=== PATIENT | female | born 1970 | race Two or more races ===

== ENCOUNTER 2024-10-23 14:28 | Emergency (ER) | payer OTHER, SELFPAY ==
[2024-10-23 14:48] VITALS: BP 165/68; PULSE 89; RESP 17; TEMP 37.4; O2SAT 96; BMI 33.4
--- NOTE | 2024-10-23 14:55 | XR_ITS ---
Examination: CT brain head without contrast. 2-D sagittal coronal reconstructions Date and time of exam:April 25, 2024 1513 hours INDICATIONS: Syncopal episode today CTDI: vol (mGy):49.9 DLP: (mGycm):973 Technique: Multiple CT axial sections of the brain have been obtained, 5 mm slice thickness. Contrast has not been administered. 2-D sagittal, coronal reconstructions have been obtained Low dose protocols were performed. One or more of the following dose reduction techniques were used; automated exposure control, adjustment of the mA and/or KV according to patient size, use of iterative reconstruction technique. Findings: No significant ventricular enlargement. Subtle 12 mm focus of low density in the right parietal lobe, axial image 18, which may be old Intra-axial or extra-axial hemorrhage density is not seen. No mass effect or midline shift Basal cisterns are not remarkable. Fourth ventricle is midline. Cranial vault intact. Impression: Negative for acute hemorrhage, mass effect or midline shift Subtle 12 mm low-density area in the right parietal lobe, axial image 18, which may be old, clinical correlation advised, consider follow-up brain MRI as clinically warranted
--- NOTE | 2024-10-23 14:56 | EKG_ITS ---
[facility] Test Date: 2024-10-23 Pat Name: JARAD COATES Department: Room: - Gender: Female [employer]: : 1970 Requested By: Erasmo Benitez Order Number: [id number] Reading MD: Erasmo Benitez Measurements Intervals [place] Rate: 80 P: 12 MN: 132 QRS: -9 QRSD: 95 T: -5 QT: 385 QTc: 447 Interpretive Statements SINUS RHYTHM LOW QRS VOLTAGE IN PRECORDIAL LEADS [QRS DEFLECTION < 1.0 mV IN CHEST LEADS] INCOMPLETE RIGHT BUNDLE BRANCH BLOCK [90+ ms QRS DURATION, TERMINAL R IN V1/V2, 40+ ms S IN I/aVL/V4/V5/V6] No previous ECG available for comparison /store/S0/[id number].pdf
--- NOTE | 2024-10-23 14:56 | PD.EDRME ---
Rapid Medical Screening Exam E Arrival date/time: 10/23/24 14:28 54-year-old female with no known medical history presents to the emergency room after having a syncopal episode that occurred at work. 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 A comprehensive ED assessment and evaluation of the patient, analysis of all test results, and completion of the medical decision making process will be conducted by additional ED providers. Chief Complaint: Nausea/Vomiting/Diarrhea Time Seen by Provider: 10/23/24 14:42 Vital signs: Vital Signs Temperature 99.3 F 10/23/24 14:48 Pulse Rate 89 10/23/24 14:48 Respiratory Rate 17 10/23/24 14:48 Blood Pressure 165/68 H 10/23/24 14:48 Pulse Oximetry (%) 96 10/23/24 14:48 Oxygen Delivery Method Room Air 10/23/24 14:48 Vital signs reviewed by provider: Yes
[2024-10-23 15:34] LABS: Basophils # (Auto) 0.0 Thou/mm3 (0.0-0.2); Basophils % (Auto) 0 % (0-2.5); Eosinophils # (Auto) 0.0 Thou/mm3 (0.0-0.5); Eosinophils % (Auto) 0 % (0-10); Hematocrit 41.2 % (36.0-46.0); Hemoglobin 14.2 g/dL (12.0-16.0); Immature Granulocytes Auto 0.03 Thou/mm3 (0.00-0.00); Lymphocytes # (Auto) 2.9 Thou/mm3 (1.0-4.8); Lymphocytes % (Auto) 28 % (10-50); Mean Corpuscular HGB Conc 34.5 g/dl (31.0-37.0); Mean Corpuscular Hemoglobin 27.6 pg (25.0-35.0); Mean Corpuscular Volume 80 fL (80-100); Monocytes # (Auto) 0.9 Thou/mm3 (0.0-0.8); Monocytes % (Auto) 9 % (0-12); Neutrophils # (Auto) 6.4 Thou/mm3 (1.8-7.7); Neutrophils % (Auto) 63 % (37-80); Nucleated Red Blood Cell # 0.00 Thou/mm3 (0.00-0.00); Nucleated Red Blood Cell % 0 /100 WBC (0); Platelet Count 365 Thou/mm3 (140-440); RDW Standard Deviation 39.3 fL (36.4-46.3); Red Blood Count 5.14 Miln/mm3 (4.00-5.20); White Blood Count 10.2 Thou/mm3 (3.6-11.0)
[2024-10-23 15:48] LABS: B-Type Natriuretic Peptide 37 pg/mL (0-100)
[2024-10-23 15:51] LABS: Alanine Aminotransferase 39 U/L (10-49); Albumin, Serum 4.6 gm/dL (3.5-5.0); Albumin/Globulin Ratio 1.6 (1.2-2.2); Alkaline Phosphatase 72 U/L (46-116); Anion Gap 12 (7-16); Aspartate Amino Transferase 40 U/L (0-34); BUN/Creatinine Ratio 9 Ratio (12-20); Bilirubin,Total 0.4 mg/dL (0.3-1.2); Blood Urea Nitrogen 8 mg/dL (9-23); Calcium 9.4 mg/dL (8.3-10.6); Calcium (Corrected) 9.4 mg/dL (8.5-10.1); Carbon Dioxide 25.1 mMol/L (20.0-31.0); Chloride 108 mMol/L (98-107); Creatine Kinase 288 U/L (34-171); Creatinine (Component) 0.9 mg/dL (0.6-1.3); Estimated Creatinine Clearance 80.6 mL/min (>60); Globulin 2.8 gm/dL (2.3-3.5); Glucose 79 mg/dL (74-106); Osmolality,Calculated 286 (275-295); Potassium 3.8 mMol/L (3.4-5.1); Sodium 145 mMol/L (136-145); Total Protein 7.4 gm/dL (5.7-8.2); Troponin I < 0.020 ng/mL (0.0-0.045); eGFR > 60 See Note
[2024-10-23 16:06] LABS: Collection Type, Urine Clean Catch
[2024-10-23 16:15] LABS: Bacteria,Urine Rare; Bilirubin,Urine Negative (Negative); Blood,Urine Negative (Negative); Clarity,Urine Clear (Clear/Hazy); Color,Urine Yellow (Lt Yel-Yel); Glucose, Urine Negative (Negative); Ketones,Urine Negative (Negative); Leukocyte Esterase,Urine Negative (Negative); Nitrite,Urine Negative (Negative); PH,Urine 5.5 (5.0-7.0); Protein,Urine Trace (Neg - Trace); RBC,Urine 3 /hpf (0-3); Specific Gravity,Urine 1.028 (1.001-1.035); Squamous Epithelial Cell,Urine 1 /hpf (0-5); Urobilinogen,Urine Negative mg/dL (0.0-1.0); WBC,Urine 1 /hpf (0-5)
[2024-10-23] MEDS: SODIUM CHLORIDE 0.9% 1000 ML 1,000 ML 999 ML IV (17:11)
--- NOTE | 2024-10-23 17:20 | EDNOTE_ITS ---
Nausea/Vomit./Diarrhea-RME/HPI General Chief complaint: Nausea/Vomiting/Diarrhea Stated complaint: Heat exhaustion, vomiting Time Seen by Provider: 10/23/24 14:42 Arrival date/time: 10/23/24 14:28 RME / HPI RME / HPI Narrative: 54-year-old female with no known medical history presents to the emergency room after having a syncopal episode that occurred at work. 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 Prior to the incident patient was vomiting also nonbloody. Patient denies focal neurologic deficit. No diarrhea. No fever noted. Related Data Allergies Allergy/AdvReac Type Severity Reaction Status Date / Time No Known Drug Allergies Allergy Verified 10/23/24 14:35 Review of Systems Review of Systems Narrative Review of Systems: Review of system reviewed and within normal limits except mentioned in HPI ED Exam Narrative Physical exam: VITAL SIGNS: Reviewed. GENERAL APPEARANCE: Alert and interactive, follows commands, no acute distress, HEAD AND FACE: Non-traumatic. ENT: PERRL, pink conjunctivitis, eyelid no trauma, Mucous membrane moist. NECK: Supple, nontender, no nuchal rigidity. CHEST: No tenderness, no crepitus, no paradoxical movement, no retractions. LUNGS: Clear, well ventilated, symmetric, no rales, no wheezing, no ronchi, no stridor, good breath sounds bilaterally. HEART: Regular rate, regular rhythm, no murmur, no gallops. ABDOMEN: Soft, positive bowel sounds, nondistended, no guarding, nontender, no rebound, no masses, RECTAL: Deferred. GENITAL: Deferred. NEUROLOGICAL: Gross motor function intact sensory function intact, Appropriate for age. MUSCULOSKELETAL: low back nontender, full range of motion. EXTREMITIES: Nontender, full range of motion. SKIN: Color pink, dry, no rash, no lacerations, no abrasions, no contusions. LYMPHATICS: Deferred. Course Quality Measures none Orders Category Date Time Status EKG (ED ONLY) *Do not use* NOW Care 10/23/24 14:56 Completed IV [Insert IV] NOW Care 10/23/24 17:[address] head/brain wo con Stat Exams 10/23/24 14:55 Completed EKG (ED Only) Stat Exams 10/23/24 14:56 Draft B-Type Natriuretic Peptide Stat Lab 10/23/24 15:27 Completed CBC Stat Lab 10/23/24 15:27 Completed CK [Creatine Kinase] Stat Lab 10/23/24 15:27 Completed Comprehensive Metabolic Panel Stat Lab 10/23/24 15:27 Completed Troponin I Stat Lab 10/23/24 15:27 Completed Urinalysis Stat Lab 10/23/24 15:48 Completed Acetaminophen Tab [Tylenol ES Tab] Med 10/23/24 17:20 Discontinued 1,000 mg PO X1 ONE Sodium Chloride 0.9% 1000 ml [Ns] 1,000 ml Med 10/23/24 17:02 Active IV 999 mls/hr Vital Signs Vital signs: Vital Signs Temperature 99.3 F 10/23/24 14:48 Pulse Rate 89 10/23/24 14:48 Respiratory Rate 17 10/23/24 14:48 Blood Pressure 165/68 H 10/23/24 14:48 Pulse Oximetry (%) 96 10/23/24 14:48 Oxygen Delivery Method Room Air 10/23/24 14:48 Nausea/Vomiting/Diarrhea MDM Narrative MDM Narrative:: 54-year-old female patient with no medical history presents to the emergency room after having a syncopal episode that occurred at work. 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 Prior to the incident patient was vomiting also nonbloody. Patient denies focal neurologic deficit. No diarrhea. No fever noted. Patient's workup today came back with no leukocytosis, CMP unremarkable except for chloride of 108 total CK of 288 urinalysis noting UTI EKG showed normal sinus rhythm, ventricular rate of 80 bpm, no ST segment elevation or depression noted. CT head showed Negative for acute hemorrhage, mass effect or midline shift Subtle 12 mm low-density area in the right parietal lobe, axial image 18, which may be old, clinical correlation advised, consider follow-up brain MRI as clinically warranted Results discussed with the patient and advised her to follow-up closely with her PCP for possible MRI of the brain. At this time patient is not showing any sign of acute changes in the CT scan. Patient received IV fluids, Tylenol, with complete resolution of symptoms. Patient data External records reviewed:: None Clinical information provided by:: patient Social determinants that could affect healthcare access:: none Patient has the following chronic illnesses:: Stable How is presenting disease/condition affected by chronic disease/condition?: exac erbated by Evaluation data The following diagnostics were reviewed and interpreted by me:: lab results, radiology exam(s) and EKG tracing(s) Lab and/or radiology exams considered but not ordered:: None Interpretation Summary: See results MDM Medications / Prescriptions Medications / Prescriptions considered but not ordered:: None Medication administrations:: Medication Administration History Sodium Chloride (Ns) 1,000 mls @ 999 mls/hr IV .Q1H1M ONE Stop: 10/23/24 18:02 Last Admin: 10/23/24 17:11 Dose: 999 mls/hr Documented By: AURELIANO Discontinued Medications Acetaminophen (Acetaminophen 500 Mg Tablet) 1,000 mg PO X1 ONE Stop: 10/23/24 17:21 Last Admin: 10/23/24 17:30 Dose: 1,000 mg Documented By: AURELIANO Tylenol, IV fluids Consultations Consultation(s) initiated? (list below): No Diagnosis Nausea Differential Diagnosis: gastroenteritis and dehydration Most likely diagnosis given after review of the tests above:: Heat exhaustion Admission Indicated Admission indicated?: not indicated Admission Request Was there a request for admission?: No Disposition Plan Disposition Plan: Discharge Discharge Attestation Discharge Attestation: The patient and all family members were given an opportunity to ask questions and understood the discharge instructions. Discharge instructions specifically effects, indications for sooner follow up or return to the emergency department, and the expected course of current diagnosis. Patient condition: Stable Discharge Plan Plan Patient Disposition: HOME (Self Care) Discharge Disposition comment: Stable Prescriptions/Referrals Referrals: No Primary/Family,Physician [Primary Care Provider] - In 1 week Problem List Clinical Impression: Dehydration, Heat exhaustion Patient/Caregiver Discharge Instructions Discharge Activity: activity as tolerated Education Materials: ED Heat Exhaustion Additional Instructions: Thank you for the opportunity for serving you today. You are stable for discharged . You are advised to: Follow-up with your PCP in 1 to 2 days Return to ED for worsening of symptoms Increase oral fluids Stay indoors for the next 48 hours in an air conditioned room Print Language: [place] Stand Alone Forms: Criselda Award Info., Patient Portal Info Letter GENEVIEVE/TANYA Supervising Physician GENEVIEVE/TANYA Supervising Physician: MD Milo
[2024-10-23] MEDS: ACETAMINOPHEN 500 MG TABLET 1000 MG PO (17:30)
[2024-10-23 18:14] VITALS: BP 124/82; PULSE 72; RESP 16; TEMP 36.6; O2SAT 99
== END 2024-10-23 18:15 | disposition home or self-care (01) ==
PROVIDERS: Nurse Practitioner Family; Emergency Provider Family Medicine
DX: E86.0 Dehydration (principal); X30.XXXA Exposure to excessive natural heat, initial encounter; Y93.9 Activity, unspecified; I45.10 Unspecified right bundle-branch block
CPT/HCPCS: 36415; 70450; 80053; 81001; 82550; 83880; 84484; 85025; 93005; 99283; J7030; A9270